=== PATIENT | female | born 1995 | race American Indian/Alaskan Native ===

== ENCOUNTER 2017-03-24 15:36 | Emergency (ER) | payer SELFPAY ==
[2017-03-24 15:52] VITALS: BP 109/70; PULSE 84; RESP 18; TEMP 98.5; O2SAT 100
--- NOTE | 2017-03-24 16:45 | C.PDOC ---
History Of Present Illness 21 y/o female presents to ED requesting pre care. Patient is 10 weeks and has a confirmed IUP. Patient states she just moved to [place] and desires pre care and her insurance (Medicaid) does not work here. Patient denies pain, vaginal bleeding or any other symptoms at this time. Time Seen by Provider: 03/24/17 16:05 Chief Complaint (Nursing): Medical Clearance History Per: Patient History/Exam Limitations: no limitations Onset/Duration Of Symptoms: Days Past Medical History Reviewed: Historical Data, Nursing Documentation, Vital Signs Vital Signs: Last Vital Signs Temp 98.5 F 03/24/17 17:50 Pulse 84 03/24/17 17:50 Resp 18 03/24/17 17:50 BP 109/70 03/24/17 17:50 Pulse Ox 100 03/24/17 17:50 Family History: States: No Known Family Hx - Social History Hx Alcohol Use: No Hx Substance Use: No - Immunization History Hx Tetanus Toxoid Vaccination: No Hx Influenza Vaccination: No Hx Pneumococcal Vaccination: No Review Of Systems Except As Marked, All Systems Reviewed And Found Negative. Gastrointestinal: Negative for: Abdominal Pain Genitourinary: Negative for: Vaginal Bleeding Physical Exam - Physical Exam Additional Physical Exam Comments: Constitutional: No acute distress. Head: Normocephalic. Atraumatic. Eyes: PERRL. ENT: Moist mucous membranes. Neck: Supple. Cardiovascular: Regular rate. Radial pulse 2+ bilaterally. Chest: No tenderness. Respiratory: Clear to auscultation bilaterally. GI: Soft. Nontender. Nondistended. Back: No CVA tenderness. Musculoskeletal: No tenderness or swelling of extremities. Skin: No rash. Neurologic: Alert, no focal deficit. ED Course And Treatment O2 Sat by Pulse Oximetry: 100 (RA) Pulse Ox Interpretation: Normal Medical Decision Making Medical Decision Making: [facility] care application not available on weekends but information given to patient for mirna care application. Disposition - Disposition Disposition: HOME/ ROUTINE Disposition Time: 17:00 Condition: STABLE - Clinical Impression Clinical Impression: care insufficient - Scribe Statement The provider has reviewed the documentation as recorded by the Kellenibzane Todd All medical record entries made by the Scribe were at my direction and personally dictated by me. I have reviewed the chart and agree that the record accurately reflects my personal performance of the history, physical exam, medical decision making, and the department course for this patient. I have also personally directed, reviewed, and agree with the discharge instructions and disposition.
== END 2017-03-24 17:50 | disposition home or self-care (01) ==
LOC: C.ER 15:36
DX: O09.31 Supervision of pregnancy with insufficient antenatal care, first trimester (principal); Z3A.10 10 weeks gestation of pregnancy

== ENCOUNTER 2018-05-27 21:27 | Emergency (ER) | payer BC ==
[2018-05-27 22:09] VITALS: BP 110/78; PULSE 72; RESP 18; TEMP 98.2; O2SAT 100
--- NOTE | 2018-05-27 23:08 | C.PDOC ---
History Of Present Illness 23 year old female presents to the ED c/o upper back pain radiating to both her shoulders for the past month. Patient states today she felt pain more to her right sided neck area which concerned her and prompted the visit. Patient states she has a 7 month old son that she has been carrying all the time. Patient denies injury, fall, trauma, weakness, numbness, headache, visual changes, nausea, vomit. Time Seen by Provider: 05/27/18 22:30 Chief Complaint (Nursing): Back Pain History Per: Patient History/Exam Limitations: no limitations Onset/Duration Of Symptoms: Days Current Symptoms Are (Timing): Still Present Quality Of Discomfort: "Pain" Recent travel outside of the [place]: No Additional History Per: Patient Past Medical History Reviewed: Historical Data, Nursing Documentation, Vital Signs Vital Signs: Last Vital Signs Temp 98.2 F 05/27/18 22:06 Pulse 72 05/27/18 22:06 Resp 18 05/27/18 22:06 BP 110/78 05/27/18 22:06 Pulse Ox 100 05/28/18 00:23 - Medical History PMH: No Chronic Diseases Surgical History: No Surg Hx Family History: States: Unknown Family Hx - Social History Hx Alcohol Use: No Hx Substance Use: No - Immunization History Hx Tetanus Toxoid Vaccination: No Hx Influenza Vaccination: No Hx Pneumococcal Vaccination: No Review Of Systems Constitutional: Negative for: Fever, Chills Cardiovascular: Negative for: Chest Pain, Palpitations Respiratory: Negative for: Cough, Shortness of Breath Gastrointestinal: Negative for: Nausea, Vomiting, Abdominal Pain Musculoskeletal: Positive for: Neck Pain, Shoulder Pain, Back Pain Skin: Negative for: Rash Neurological: Negative for: Weakness, Numbness, Headache, Dizziness Physical Exam - Physical Exam Appears: Non-toxic, No Acute Distress Skin: Normal Color, Warm, Dry Head: Atraumatic, Normacephalic Eye(s): bilateral: Normal Inspection Oral Mucosa: Moist Neck: Normal ROM, Paracervical Tenderness (right sided ), Supple Chest: Symmetrical, No Tenderness Cardiovascular: Rhythm Regular Respiratory: Normal Breath Sounds, No Rales, No Rhonchi, No Wheezing Gastrointestinal/Abdominal: Soft, No Tenderness, No Guarding, No Rebound Back: Other (bilateral subscapular tenderness) Extremity: Normal ROM, No Tenderness, No Swelling Extremity: Bilateral: Atraumatic Neurological/Psych: Oriented x3, Normal Speech, Normal Motor, Normal Sensation Gait: Steady ED Course And Treatment O2 Sat by Pulse Oximetry: 100 (ON RA) Pulse Ox Interpretation: Normal Progress Note: Plan: - Motrin 600 mg PO. On reassessment, patient is resting comfortably, with improvement of back pain. Patient remains afebrile, with no bony tenderness, extremity numbness or weakness, or abdominal pain. Patient is ambulatory in the emergency department with no signs of discomfort. Patient was advised to follow up with physician/clinic in 1-2 days. Disposition Counseled Patient/Family Regarding: Diagnosis, Need For Followup, Rx Given - Disposition Disposition: HOME/ ROUTINE Disposition Time: 23:05 Condition: STABLE Additional Instructions: Please follow up with PMD Take motrin as needed for pain Return to ER if worse Prescriptions: Ibuprofen [Motrin] 600 mg PO Q6H #20 tab Instructions: Muscle Strain (DC), Finger Sprain (ED) Forms: [facility] ([place]) - Clinical Impression Clinical Impression: Muscle strain of upper back, Neck muscle strain - PA / [employer]CHITECT / Resident Statement MD/DO has reviewed & agrees with the documentation as recorded. - Scribe Statement The provider has reviewed the documentation as recorded by the Scribe Bartolome Don All medical record entries made by the Scribe were at my direction and personally dictated by me. I have reviewed the chart and agree that the record accurately reflects my personal performance of the history, physical exam, medical decision making, and the department course for this patient. I have also personally directed, reviewed, and agree with the discharge instructions and disposition.
== END 2018-05-27 23:20 | disposition home or self-care (01) ==
LOC: C.ER 21:27
DX: S29.012A Strain of muscle and tendon of back wall of thorax, initial encounter (principal); S16.1XXA Strain of muscle, fascia and tendon at neck level, initial encounter; X58.XXXA Exposure to other specified factors, initial encounter